=== PATIENT | male | born 1940 | race Caucasian/White ===

== ENCOUNTER 2016-09-20 06:10 | Emergency (ER) | payer MEDICARE, OTHER ==
[2016-09-20] MEDS ORDERED: ROCEPHIN 1 Gm-D5w 50 ml Bag** 50 ML IV ONE ×2 (06:13→06:29)
[2016-09-20] MEDS ORDERED: Xopenex 1.25 MG/0.5 ML UD NEBULE IH ONE ×2 (06:13→06:23)
[2016-09-20] MEDS ORDERED: Zithromax 500 MG/ 250 ML NaCl Premix 250 ML IV ONE ×2 (06:13→06:55)
[2016-09-20] MEDS ORDERED: Sodium Chloride 0.9% 1000 ML 1,000 ML IV SCH (06:15)
[2016-09-20] MEDS ORDERED: Nitrostat 0.4 MG (ED) SL ONE ×2 (06:20→06:29)
--- NOTE | 2016-09-20 06:20 | ERPHSYRPT ---
- History of Present Illness Time Seen by Provider: 09/20/16 06:10 Source: patient Exam Limitations: no limitations Physician History: FOR THE PAST 10 HOURS PT HAS HAD SHORTNESS OF AIR AND CHEST HEAVINESS; DENIES DIAPHORESIS, NAUSEA, VOMITING, ABDOMINAL PAIN, FEVER; ADMITS TO CHRONIC COUGH FOR YEARS(COPD). PT HAS HAD AN ME IN 2000 AND [address]. ACCOUNT AUDITOR IS DR ROBERTS. Allergies/Adverse Reactions: amiodarone [From Pacerone] Allergy (Severe, Verified 09/20/16 06:40) Home Medications: Aspirin 325 mg PO DAILY 06/23/16 [History] Atorvastatin Calcium [Lipitor 20MG Tablet] 20 mg PO DAILY 06/23/16 [History] Clopidogrel Bisulfate 75 mg [PLAVIX 75 MG Tablet] 75 mg PO DAILY 06/23/16 [History] Isosorbide Mononitrate 30 mg [Imdur 30 MG] 30 mg PO BID 06/23/16 [History] Labetalol HCl [Trandate] 300 mg PO BID 06/23/16 [History] Lisinopril 10 mg [Zestril 10 MG] 10 mg PO DAILY 06/23/16 [History] Metformin HCl 500 mg [Glucophage 500 MG] 500 mg PO DAILY 06/23/16 [History ] Omeprazole 20 MG [Prilosec 20 mg] 20 mg PO BID 06/23/16 [History] Spironolactone 25 mg [Aldactone 25 MG] 25 mg PO DAILY 06/23/16 [History] Hx Tetanus, Diphtheria Vaccination/Date Given: No Hx Influenza Vaccination/Date Given: Yes Hx Pneumococcal Vaccination/Date Given: Yes - Review of Systems Respiratory: Cough, Dyspnea Cardiac: Other (CHEST HEAVINESS) All Other Systems: Reviewed and Negative - Past Medical History Pertinent Past Medical History: Yes Cardiac History: Hypertension, Myocardial Infarction ([place]) Respiratory History: COPD Endocrine Medical History: Diabetes Type II - Past Surgical History Past Surgical History: Yes Cardiac: Cardiac Catheterization, Cardiac Stent Musculoskeletal: Orthopedic Surgery - Social History Smoking Status: Current every day smoker How long have you smoked: YRS Exposure to second hand smoke: Yes Drug Use: none Patient Lives Alone: No - Nursing Vital Signs Nursing Vital Signs: Initial Vital Signs Temperature 97.7 F Temperature Source Oral Pulse Rate 88 Respiratory Rate 21 Blood Pressure [] 93/60 Pain Intensity 0 - Physical Exam General Appearance: alert Eye Exam: PERRL/EOMI Ears, Nose, Throat Exam: hearing grossly normal, normal pharynx Neck Exam: normal inspection Respiratory Exam: airway intact, diminished breath sounds, prolonged expirations , rhonchi, wheezing Cardiovascular/Chest Exam: normal heart sounds Abdominal/Gastrointestinal Exam: soft, normal bowel sounds Extremity Exam: normal inspection, No pedal edema Peripheral Pulses Exam: dorsalis-pedis (R): 2+, dorsalis-pedis (L): 2+ Neurologic Exam: alert, cooperative Skin Exam: warm, dry SpO2 Interpretation: normal SpO2: 95 Oxygen Delivery: Room Air - Course Nursing assessment & vital signs reviewed: Yes EKG Interpreted by Me: RATE (89), Sinus Rhythm, Left [place] Deviation, NORMAL INTERVALS - Radiology Exams Chest X-ray Interpretation: Interpreted by me, No Pneumonia Ordered Tests: Active Orders 24 hr Category Date Time Status Portfolio Strategist STAT Care 09/20/16 06:13 Active EKG-ER Only STAT Care 09/20/16 06:13 Active IV Insertion STAT Care 09/20/16 06:13 Active Oxygen-ED Only NASAL CANNULA 2 lpm Care 09/20/16 06:13 Active Pulse Oximetry (ED) STAT Care 09/20/16 06:13 Active CHEST 1 VIEW (PORTABLE) Stat Exams 09/20/16 06:14 Taken ARTERIAL BLOOD GASES Urgent Lab 09/20/16 06:25 Completed BLOOD CULTURE Stat Lab 09/20/16 06:32 Received CBC W DIFF Stat Lab 09/20/16 06:25 Completed CMP Stat Lab 09/20/16 06:25 Completed CULTURE,SPUTUM Stat Lab 09/20/16 06:14 Uncollected MAGNESIUM Stat Lab 09/20/16 06:25 Completed NT PRO BNP Stat Lab 09/20/16 06:25 Completed PROTIME WITH INR Stat Lab 09/20/16 06:25 Received PTT Stat Lab 09/20/16 06:25 Received TROPONIN Stat Lab 09/20/16 06:25 Completed Respiratory Nebulizer STAT RT 09/20/16 06:36 Completed Medication Summary Generic Name Dose Route Start Last Admin Trade Name Freq PRN Reason Stop Dose Admin Azithromycin 250 mls @ 125 mls/hr 09/20/16 06:13 09/20/16 06:56 Zithromax 500 Mg/ 250 Ml Nacl Premix IV 09/20/16 08:12 125 mls/hr STAT ONE Administration Sodium Chloride 1,000 mls @ 300 mls/hr 09/20/16 06:15 09/20/16 06:39 Sodium Chloride 0.9% 1000 Ml IV 10/20/16 06:14 300 mls/hr .[id number] HARLEEN Administration Discontinued Medications Generic Name Dose Route Start Last Admin Trade Name Merlene PRN Reason Stop Dose Admin Aspirin 324 mg 09/20/16 06:21 09/20/16 06:40 Baby Aspirin 81 Mg Chew PO 09/20/16 06:22 324 mg STAT ONE Administration Aspirin Confirm 09/20/16 06:29 Baby Aspirin 81 Mg Chew Administered 09/20/16 06:30 Dose 324 mg .ROUTE .STK-MED ONE Ceftriaxone Sodium/Dextrose 50 mls @ 100 mls/hr 09/20/16 06:13 09/20/16 06:39 Rocephin 1 Gm-D5w 50 Ml Bag IV 09/20/16 06:42 100 mls/hr STAT ONE Administration Sodium Chloride Confirm 09/20/16 06:29 Sodium Chloride 0.9% 1000 Ml Administered 09/20/16 06:30 Dose 1,000 mls @ ud .ROUTE .STK-MED ONE Ceftriaxone Sodium/Dextrose Confirm 09/20/16 06:29 Rocephin 1 Gm-D5w 50 Ml Bag Administered 09/20/16 06:30 Dose 50 mls @ ud IV .STK-MED ONE Azithromycin Confirm 09/20/16 06:55 Zithromax 500 Mg/ 250 Ml Nacl Premix Administered 09/20/16 06:56 Dose 250 mls @ ud IV .STK-MED ONE Levalbuterol HCl 1.25 mg 09/20/16 06:13 09/20/16 06:26 Xopenex 1.25 Mg/0.5 Ml Ud Nebule IH 09/20/16 06:14 1.25 mg STAT ONE Administration Levalbuterol HCl Confirm 09/20/16 06:23 Xopenex 1.25 Mg/0.5 Ml Ud Nebule Administered 09/20/16 06:24 Dose 1.25 mg IH .STK-MED ONE Nitroglycerin 0.4 mg 09/20/16 06:20 09/20/16 06:40 Nitrostat 0.4 Mg (Ed) SL 09/20/16 06:21 0.4 mg STAT ONE Administration Nitroglycerin Confirm 09/20/16 06:29 Nitrostat 0.4 Mg (Ed) Administered 09/20/16 06:30 Dose 0.4 mg SL .STK-MED ONE Sodium Chloride Confirm 09/20/16 06:23 Sodium Chloride 3 Ml Ud Nebules Administered 09/20/16 06:24 Dose 3 ml IH .STK-MED ONE Lab/Rad Data: Laboratory Result Diagrams 09/20/16 06:25 09/20/16 06:25 Laboratory Results 09/20/16 09/20/16 09/20/16 Range/Units 06:25 06:25 06:25 WBC 8.7 (4.0-10.5) K/mm3 RBC 4.08 L (4.1-5.6) M/mm3 Hgb 12.4 L (12.5-18.0) gm/dl Hct 39.8 L (42-50) % MCV 97.5 (78-100) fl MCH 30.3 (26-32) pg MCHC 31.2 L (32-36) g/dl RDW 13.7 (11.5-14.0) % Plt Count 252 (150-450) K/mm3 MPV 9.7 H (6-9.5) fl Gran % 76.6 H (36.0-66.0) % Lymphocytes % 8.8 L (24.0-44.0) % Monocytes % 11.0 (0.0-12.0) % Eosinophils % 3.4 (0.00-5.0) % Basophils % 0.2 (0.0-0.4) % Basophils # 0.02 (0-0.4) Puncture Site RIGHT BRACHIAL pCO2 42 (35-45) mmHg pO2 71 L (75-100) mmHg Base Excess -1.1 (-2.0-2.0) O2 Saturation 92.4 L (94-100) g/dF ABG pH 7.37 (7.35-7.45) ABG HCO3 24.3 (22-28) ABG O2 Sat (Measured) 96.6 (95-100) % Michel Test NOT APPLICABLE A-a Gradient 26 a/A Ratio 0.73 Hemoglobin 12.8 Carboxyhemoglobin 3.2 (0.0-6.9) % THgb Methemoglobin 1.1 L (1.4-1.5) % Potassium 4.1 4.3 (3.5-5.1) Temperature 37.0 C POC O2 Flow Rate 21 % Sodium 140 (136-145) mEq/L Chloride 105 (98-107) mEq/L Carbon Dioxide 23.8 (21-32) mEq/L Anion Gap 15.5 H (5-15) MEQ/L BUN 14 (9-20) mg/dL Creatinine 0.92 (0.55-1.30) mg/dl Estimated GFR > 60 ML/MIN Glucose 151 H (70-110) MG/DL Calcium 8.7 (8.5-10.1) mg/dL Magnesium 2.0 (1.8-2.4) mg/dL Total Bilirubin 0.3 (0.2-1.0) mg/dL AST 18 (15-37) U/L ALT 18 (12-78) U/L Alkaline Phosphatase 83 (46-116) U/L Troponin I < 0.017 (0.000-0.056) ng/ml NT-Pro-B Natriuret Pep 166 H (0-125) pg/ml Serum Total Protein 6.9 (6.4-8.2) gm/dL Albumin 3.7 (3.4-5.0) g/dL - Progress Discussed with DrSuhas: Davina Salvador (ACCEPTING PT FOR TRANSFER TO [facility] [place] A DIRECT ADMISSION([id number]) ) - Departure Time of Disposition: 07:32 Departure Disposition: Transfer ([facility] [place]) Clinical Impression: COPD-ACUTE EXACERBATION, CHEST HEAVINESS, HTN, DM Condition: Stable Critical Care Time: No Referrals: BLANCA LI MD [Primary Care Provider] - Instructions: Shortness of Breath, Chronic Obstructive Pulmonary Disease
[2016-09-20] MEDS ORDERED: BABY ASPIRIN 81 MG CHEW PO ONE (06:21)
[2016-09-20] MEDS ORDERED: Sodium Chloride 3 ML UD NEBULES IH ONE (06:23)
[2016-09-20] MEDS ORDERED: BABY ASPIRIN 81 MG CHEW ONE (06:29)
[2016-09-20] MEDS ORDERED: Sodium Chloride 0.9% 1000 ML 1,000 ML ONE (06:29)
[2016-09-20 06:32] LABS: A-aADO2 26; ARTERIAL BLD GAS O2 SATURATION 96.6 % (95-100); ARTERIAL BLOOD GAS BASE EXCESS -1.1 (-2.0-2.0); ARTERIAL BLOOD GAS FIO2 21 %; ARTERIAL BLOOD GAS PO2 71 mmHg (75-100); ARTERIAL BLOOD GAS pH 7.37 (7.35-7.45)
[2016-09-20 06:36] LABS: BASOPHIL % 0.2 % (0.0-0.4); Eosinophil % 3.4 % (0.00-5.0); Granulocytes % 76.6 % (36.0-66.0); Lymphocytes % 8.8 % (24.0-44.0); Mean Cell Volume 97.5 fl (78-100); Mean Platelet Volume 9.7 fl (6-9.5); Platelet Count 252 K/mm3 (150-450); Red Blood Count 4.08 M/mm3 (4.1-5.6); Red Cell Distribution Width 13.7 % (11.5-14.0); White Blood Count 8.7 K/mm3 (4.0-10.5)
[2016-09-20 06:47] LABS: Mean Corpuscular Hemoglobin 30.3 pg (26-32)
[2016-09-20 07:23] LABS: ALBUMIN 3.7 g/dL (3.4-5.0); ALKALINE PHOSPHATASE 83 U/L (46-116); ANION GAP 15.5 MEQ/L (5-15); BILIRUBIN,TOTAL 0.3 mg/dL (0.2-1.0); BLOOD UREA NITROGEN 14 mg/dL (9-20); CHLORIDE 105 mEq/L (98-107); Carbon Dioxide 23.8 mEq/L (21-32); Glucose 151 MG/DL (70-110); Potassium 4.3 mEq/L (3.5-5.1); SGOT/AST 18 U/L (15-37); SGPT/ALT 18 U/L (12-78); SODIUM 140 mEq/L (136-145); TROPONIN < 0.017 ng/ml (0.000-0.056); Total Protein 6.9 gm/dL (6.4-8.2)
[2016-09-20] MEDS ORDERED: solu-MEDROL 125 MG IV ONE (07:33)
[2016-09-20 07:36] LABS: INR 1.08 (0.8-3.0); PROTIME 12.1 SECONDS (8.83-12.87)
[2016-09-20 07:38] LABS: PTT 30.6 SECONDS (24.1-36.1)
[2016-09-20] MEDS ORDERED: solu-MEDROL 125 MG ONE (07:45)
[2016-09-20 07:56] VITALS: O2SAT 97
--- NOTE | 2016-09-20 08:59 | XRAY ---
Indication: Short of breath. Comparison: June 23, 2016. AP chest again hyperinflated and clear. Heart is nonenlarged. New moderate size hiatal hernia. Bony thorax intact again with mild osteopenia and degenerative changes. Impression: Stable COPD. New hiatal hernia. Nothing acute.
[2016-09-20 09:47] VITALS: BP 153/76; PULSE 82
== END 2016-09-20 09:48 | disposition short-term general hospital (02) ==
LOC: ED 06:10
DX: J44.1 Chronic obstructive pulmonary disease with (acute) exacerbation (principal); R07.89 Other chest pain; I10 Essential (primary) hypertension; E11.9 Type 2 diabetes mellitus without complications; Z79.82 Long term (current) use of aspirin; Z79.84 Long term (current) use of oral hypoglycemic drugs; I25.2 Old myocardial infarction; Z98.61 Coronary angioplasty status; R05 Cough; Z79.01 Long term (current) use of anticoagulants
CPT/HCPCS: 36000; 36415; 36600; 71010; 80053; 82375; 82803; 83735; 83880; 84484; 85025; 85610; 85730; 87040; 93005; 93041; 94640; 96360; 96361; 96365; 96367; 96374; 99284; J0456; J0696; J2930

== ENCOUNTER 2022-04-27 19:09 | Observation (INO) | payer MEDICARE, OTHER ==
[2022-04-27] MEDS ORDERED: solu-MEDROL 125 MG, Sterile H2O 10 ml 2 ML IV ONE ×2 (19:23)
[2022-04-27] MEDS ORDERED: DUONEB 0.5-3 MG/3 ml Neb IH ONE ×2 (19:23→19:44)
--- NOTE | 2022-04-27 19:27 | ERPHSYRPT ---
- History of Present Illness Time Seen by Provider: 04/27/22 19:26 Source: patient Exam Limitations: no limitations Physician History: Patient is a 81-year-old male presents to emergency department for evaluation of shortness of breath. Patient has a history of COPD. Patient is a smoker. Symptoms started approximately 1 week ago and has been progressively worse. No associated chest pain. No nausea vomiting or diaphoresis. Symptoms are moderate in intensity. Symptoms are worse with exertion. Symptoms improved with rest. Patient voices no other complaints or concerns at this time. Portions of this note were created with voice recognition technology. There may be grammatical, spelling, punctuation or sound alike errors Timing/Duration: week(s) Severity of Dyspnea-Max: moderate Severity of Dyspnea-Current: mild Possible Cause: frequent episodes Modifying Factors: Improves With: activity Associated Symptoms: cough, No chest pain/discomfort, No ankle swelling, No calf pain, No heart racing, No muscle spasms feet, No painful breathing Allergies/Adverse Reactions: amiodarone [From Pacerone] Allergy (Severe, Verified 04/27/22 19:28) Home Medications: Aspirin 325 mg PO DAILY 06/23/16 [History] Atorvastatin Calcium [Lipitor 20MG Tablet] 20 mg PO DAILY 06/23/16 [History] Clopidogrel Bisulfate [PLAVIX 75 MG Tablet] 75 mg PO DAILY 06/23/16 [History] Isosorbide Mononitrate 30 mg [Imdur 30 MG] 30 mg PO BID 06/23/16 [History] Labetalol HCl [Trandate] 300 mg PO BID 06/23/16 [History] Lisinopril 10 mg [Zestril 10 MG] 10 mg PO DAILY 06/23/16 [History] Metformin HCl 500 mg [Glucophage 500 MG] 500 mg PO DAILY 06/23/16 [Histor y] Omeprazole 20 MG [Prilosec 20 mg] 20 mg PO BID 06/23/16 [History] Spironolactone 25 mg [Aldactone 25 MG] 25 mg PO DAILY 06/23/16 [History] Hx Tetanus, Diphtheria Vaccination/Date Given: No Hx Influenza Vaccination/Date Given: Yes Hx Pneumococcal Vaccination/Date Given: Yes - Review of Systems Constitutional: No Symptoms, No Fever, No Chills Eyes: No Symptoms Ears, Nose, & Throat: No Symptoms Respiratory: No Symptoms, No Cough, No Dyspnea Cardiac: No Symptoms, No Chest Pain, No Edema, No Syncope Abdominal/Gastrointestinal: No Symptoms, No Abdominal Pain, No Nausea, No Vomiting, No Diarrhea Genitourinary Symptoms: No Symptoms, No Dysuria Musculoskeletal: No Symptoms, No Back Pain, No Neck Pain Skin: No Symptoms, No Rash Neurological: No Symptoms, No Dizziness, No Focal Weakness, No Sensory Changes Psychological: No Symptoms Endocrine: No Symptoms Hematologic/Lymphatic: No Symptoms Immunological/Allergic: No Symptoms All Other Systems: Reviewed and Negative - Past Medical History Pertinent Past Medical History: Yes Cardiac History: Hypertension, Myocardial Infarction ([place]) Respiratory History: COPD Endocrine Medical History: Diabetes Type II - Past Surgical History Past Surgical History: Yes Cardiac: Cardiac Catheterization, Cardiac Stent Musculoskeletal: Orthopedic Surgery Other Surgical History: rt eye removed - Social History Smoking Status: Current every day smoker How long have you smoked: YRS Exposure to second hand smoke: Yes Drug Use: none Patient Lives Alone: No - Nursing Vital Signs Nursing Vital Signs: Initial Vital Signs Temperature 97.8 F 04/27/22 19:09 Pulse Rate 85 04/27/22 19:09 Respiratory Rate 18 04/27/22 19:09 Blood Pressure 170/97 04/27/22 19:09 O2 Sat by Pulse Oximetry 96 04/27/22 19:09 Pain Scale Pain Intensity 0 - Physical Exam General Appearance: no apparent distress, alert Eye Exam: PERRL/EOMI Ears, Nose, Throat Exam: hearing grossly normal, normal ENT inspection, normal pharynx Neck Exam: normal inspection, supple, full range of motion Respiratory Exam: normal breath sounds, chest tenderness, diminished breath sounds, rhonchi, wheezing Cardiovascular/Chest Exam: normal heart sounds, regular rate/rhythm Abdominal/Gastrointestinal Exam: soft, No tenderness, No distention, No mass Extremity Exam: non-tender, normal range of motion, normal inspection, no calf tenderness, no pedal edema Neurologic Exam: alert, oriented x 3, cooperative, non ferrous material handler II-XII nml as tested, sensation nml, No motor deficits Skin Exam: normal color, warm, No dry SpO2 Interpretation: normal SpO2: 96 O2 Delivery: Room Air - Course Nursing assessment & vital signs reviewed: Yes EKG Interpreted by Me: RATE (80), Sinus Rhythm, NORMAL AXIS, NORMAL INTERVALS - Radiology Exams Chest X-ray Interpretation: Interpreted by me (Hyperinflated lungs. Normal cardiac silhouette. Intact bony thorax. Osteopenia. Degenerative changes.) Ordered Tests: Active Orders 24 hr Category Date Time Status Gray Tender STAT Care 04/27/22 19:23 Active EKG-ER Only STAT Care 04/27/22 19:23 Active IV Insertion STAT Care 04/27/22 19:23 Active Pulse Oximetry (ED) STAT Care 04/27/22 19:23 Active CHEST 1 VIEW (PORTABLE) Stat Exams 04/27/22 19:23 Taken BLOOD CULTURE Stat Lab 04/27/22 19:45 Received CBC W DIFF Stat Lab 04/27/22 19:45 Completed CMP Stat Lab 04/27/22 19:23 Completed NT PRO BNP Stat Lab 04/27/22 19:23 Completed TROPONIN Q4H Lab 04/27/22 19:46 Completed TROPONIN Q4H Lab 04/27/22 23:30 Ordered TROPONIN Q4H Lab 04/28/22 03:30 Ordered Respiratory Therapy Assessment DAILY RT 04/27/22 19:49 Active Transfer Order Routine Transfer 04/27/22 Ordered Medication Summary Generic Name Dose Route Start Last Admin Trade Name Freq PRN Reason Stop Dose Admin Azithromycin 500 mg in 250 mls @ 250 mls/hr 04/27/22 22:05 Zithromax 500 Mg/ 250 Ml Nacl Premix IV 04/27/22 23:04 STAT STA Ceftriaxone Sodium/Dextrose 2 g in 50 mls @ 100 mls/hr 04/27/22 22:05 04/27/22 22:08 Rocephin 2 Gm-D5w 50ml Bag IV 04/27/22 22:34 100 mls/hr STAT STA 100 mls/hr Administration Discontinued Medications Generic Name Dose Route Start Last Admin Trade Name Freq PRN Reason Stop Dose Admin Albuterol/Ipratropium 3 ml 04/27/22 19:23 04/27/22 19:45 Ipratropium/Albuterol Sulfate 3 Ml Ampul.Neb IH 04/27/22 19:24 3 ml STAT ONE Administration Albuterol/Ipratropium Confirm 04/27/22 19:44 Ipratropium/Albuterol Sulfate 3 Ml Ampul.Neb Administered 04/27/22 19:45 Dose 3 ml IH .STK-MED ONE Methylprednisolone Sodium 0 mg 04/27/22 19:23 04/27/22 19:42 Succinate 125 mg/ Sterile IV 04/27/22 19:24 125 mg Water 2 ml STAT ONE Administration Ceftriaxone Sodium/Dextrose Confirm 04/27/22 22:07 Rocephin 2 Gm-D5w 50ml Bag Administered 04/27/22 22:08 Dose 2 g in 50 mls @ ud IV .STK-MED ONE Methylprednisolone Sodium Succinate Confirm 04/27/22 19:39 Methylprednis Sod Succ 125 Mg/2 Ml Vial Administered 04/27/22 19:40 Dose 125 mg .ROUTE .STK-MED ONE Sterile Water Confirm 04/27/22 19:39 Water For Injection,Sterile 10 Ml Vial Administered 04/27/22 19:40 Dose 10 ml IJ .STK-MED ONE Lab/Rad Data: Laboratory Result Diagrams 04/27/22 19:45 04/27/22 19:23 Laboratory Results 04/27/22 04/27/22 04/27/22 Range/Units Unknown 19:46 19:45 WBC 7.0 (4.0-10.5) x10^3/uL RBC 3.72 L (4.1-5.6) x10^6/uL Hgb 12.4 L (12.5-18.0) g/dL Hct 39.2 L (42-50) % MCV 105.4 H (78-100) fL MCH 33.3 H (26-32) pg MCHC 31.6 L (32-36) g/dL RDW 12.9 (11.5-14.0) % Plt Count 187 (150-450) x10^3/uL MPV 9.7 (7.5-11.0) fL Gran % 68.6 H (36.0-66.0) % Immature Gran % (Auto) 0.3 (0.00-0.4) % Nucleat RBC Rel Count 0.0 (0.00-0.1) % Eos # (Auto) 0.25 (0-0.5) x10^3/uL Immature Gran # (Auto) 0.02 (0.00-0.03) x10^3u/L Absolute Lymphs (auto) 1.07 (1.0-4.6) x10^3/uL Absolute Monos (auto) 0.84 (0.0-1.3) x10^3/uL Absolute Nucleated RBC 0.00 (0.00-0.01) x10^3u/L Lymphocytes % 15.2 L (24.0-44.0) % Monocytes % 11.9 (0.0-12.0) % Eosinophils % 3.6 (0.00-5.0) % Basophils % 0.4 (0.0-0.4) % Absolute Granulocytes 4.83 (1.4-6.9) x10^3/uL Basophils # 0.03 (0-0.4) x10^3/uL Sodium (137-145) mmol/L Potassium (3.5-5.1) mmol/L Chloride (98-107) mmol/L Carbon Dioxide (22-30) mmol/L Anion Gap (5-15) MEQ/L BUN (9-20) mg/dL Creatinine (0.66-1.25) mg/dL Estimated GFR ML/MIN Glucose (74-106) mg/dL Calcium (8.4-10.2) mg/dL Total Bilirubin (0.2-1.3) mg/dL AST (17-59) U/L ALT (0-50) U/L Alkaline Phosphatase (38-126) U/L Troponin I < 0.012 (0.000-0.034) ng/mL NT-Pro-B Natriuret Pep (0-1800) pg/mL Serum Total Protein (6.3-8.2) g/dL Albumin (3.5-5.0) g/dL Influenza Type A Ag NEGATIVE (NEGATIVE) Influenza Type B Ag NEGATIVE (NEGATIVE) RSV (PCR) NEGATIVE (Negative) SARS-CoV-2 (PCR) NEGATIVE (NEGATIVE) 04/27/22 Range/Units 19:23 WBC (4.0-10.5) x10^3/uL RBC (4.1-5.6) x10^6/uL Hgb (12.5-18.0) g/dL Hct (42-50) % MCV (78-100) fL MCH (26-32) pg MCHC (32-36) g/dL RDW (11.5-14.0) % Plt Count (150-450) x10^3/uL MPV (7.5-11.0) fL Gran % (36.0-66.0) % Immature Gran % (Auto) (0.00-0.4) % Nucleat RBC Rel Count (0.00-0.1) % Eos # (Auto) (0-0.5) x10^3/uL Immature Gran # (Auto) (0.00-0.03) x10^3u/L Absolute Lymphs (auto) (1.0-4.6) x10^3/uL Absolute Monos (auto) (0.0-1.3) x10^3/uL Absolute Nucleated RBC (0.00-0.01) x10^3u/L Lymphocytes % (24.0-44.0) % Monocytes % (0.0-12.0) % Eosinophils % (0.00-5.0) % Basophils % (0.0-0.4) % Absolute Granulocytes (1.4-6.9) x10^3/uL Basophils # (0-0.4) x10^3/uL Sodium 137 (137-145) mmol/L Potassium 4.4 (3.5-5.1) mmol/L Chloride 105 (98-107) mmol/L Carbon Dioxide 23 (22-30) mmol/L Anion Gap 13.0 (5-15) MEQ/L BUN 20 (9-20) mg/dL Creatinine 0.91 (0.66-1.25) mg/dL Estimated GFR > 60.0 ML/MIN Glucose 113 H (74-106) mg/dL Calcium 8.7 (8.4-10.2) mg/dL Total Bilirubin 0.30 (0.2-1.3) mg/dL AST 22 (17-59) U/L ALT 17 (0-50) U/L Alkaline Phosphatase 62 (38-126) U/L Troponin I (0.000-0.034) ng/mL NT-Pro-B Natriuret Pep 168 (0-1800) pg/mL Serum Total Protein 6.2 L (6.3-8.2) g/dL Albumin 3.8 (3.5-5.0) g/dL Influenza Type A Ag (NEGATIVE) Influenza Type B Ag (NEGATIVE) RSV (PCR) (Negative) SARS-CoV-2 (PCR) (NEGATIVE) - Progress Progress: improved Air Movement: fair Progress Note: Patient reassessed. He feels somewhat better. X-ray reveals hyperinflated lungs. Patient has diminished coarse breath sounds with faint wheezing. Patient is a current smoker. History of COPD. We will admit for further evaluation and treatment of COPD exacerbation. Blood cultures obtained. Antibiotics administered. 04/27/22 22:17 Case discussed with who accepts admission to observation. Plan of care discussed with patient. He agrees to admission at [facility] for further evaluation and treatment. Admit orders completed. COVID test negative. 04/27/22 22:18 Blood Culture(s) Obtained: Yes Antibiotics given: Yes Discussed with Dr.: Dada Will see patient in: hospital (observation) Counseled pt/family regarding: lab results, diagnosis, rad results - Departure Departure Disposition: Observation Clinical Impression: COPD exacerbation, Macrocytic anemia Condition: Stable Critical Care Time: No Referrals: BLANCA LI MD [Primary Care Provider] - Follow up/PCP as directed Instructions: Chronic Obstructive Pulmonary Disease
[2022-04-27] MEDS ORDERED: Sterile H2O 10 ml IJ ONE (19:39)
[2022-04-27] MEDS ORDERED: solu-MEDROL ONE (19:39)
[2022-04-27 19:48] LABS: Absolute Neutrophil Ct (ANC) 4.83 x10^3/uL (1.4-6.9); Basophil (Absolute #) 0.03 x10^3/uL (0-0.4); Eosinophil % 3.6 % (0.00-5.0); Eosinophil (Absolute #) 0.25 x10^3/uL (0-0.5); Hematocrit 39.2 % (42-50); Hemoglobin 12.4 g/dL (12.5-18.0); Lymphocyte (Absolute #) 1.07 x10^3/uL (1.0-4.6); Lymphocytes % 15.2 % (24.0-44.0); Mean Cell Volume 105.4 fL (78-100); Mean Corpuscular Hemoglobin 33.3 pg (26-32); Mean Corpuscular Hgb Concent. 31.6 g/dL (32-36); Mean Platelet Volume 9.7 fL (7.5-11.0); Monocyte (Absolute #) 0.84 x10^3/uL (0.0-1.3); Monocytes % 11.9 % (0.0-12.0); Neutrophil % 68.6 % (36.0-66.0); Platelet Count 187 x10^3/uL (150-450); Red Blood Count 3.72 x10^6/uL (4.1-5.6); Red Cell Distribution Width 12.9 % (11.5-14.0)
[2022-04-27 20:13] LABS: ALBUMIN 3.8 g/dL (3.5-5.0); ALKALINE PHOSPHATASE 62 U/L (38-126); BLOOD UREA NITROGEN 20 mg/dL (9-20); CHLORIDE 105 mmol/L (98-107); Calcium 8.7 mg/dL (8.4-10.2); Carbon Dioxide 23 mmol/L (22-30); Creatinine 1 0.91 mg/dL (0.66-1.25); EST GLOMERULAR FILTRATION RATE > 60.0 ML/MIN; Glucose 113 mg/dL (74-106); NT PRO BNP 168 pg/mL (0-1800); Potassium 4.4 mmol/L (3.5-5.1); SGOT/AST 22 U/L (17-59); SGPT/ALT 17 U/L (0-50); SODIUM 137 mmol/L (137-145); Total Protein 6.2 g/dL (6.3-8.2)
[2022-04-27 20:24] LABS: INFLUENZA A NEGATIVE (NEGATIVE); INFLUENZA B NEGATIVE (NEGATIVE); RESPIRATORY SYNCTIAL VIRUS NEGATIVE (Negative); SARS-CoV-2 Xpert Express NEGATIVE (NEGATIVE)
[2022-04-27] MEDS ORDERED: ROCEPHIN 2 Gm-D5w 50ML BAG** 2 G/50 ML IVPB IV STA (22:05)
[2022-04-27] MEDS ORDERED: Zithromax 500 MG/ 250 ML NaCl Premix 500 MG/250 ML IVPB IV STA (22:05)
[2022-04-27] MEDS ORDERED: ROCEPHIN 2 Gm-D5w 50ML BAG** 2 G/50 ML IVPB IV ONE (22:07)
[2022-04-27] MEDS ORDERED: Nitrostat 0.4 MG (ED) SL ONE (22:17)
[2022-04-27] MEDS ORDERED: DUONEB 0.5-3 MG/3 ml Neb IH SCH (23:00)
[2022-04-28] MEDS ORDERED: solu-MEDROL ONE (00:05)
[2022-04-28] MEDS ORDERED: Sterile H2O 10 ml IJ ONE (00:06)
[2022-04-28] MEDS: solu-MEDROL 60 MG, Sterile H2O 10 ml 2 ML IV SCH ×6 (00:10→11:54)
[2022-04-28 05:13] LABS: Hematocrit 41.1 % (42-50); Hemoglobin 12.9 g/dL (12.5-18.0); Mean Cell Volume 105.9 fL (78-100); Mean Corpuscular Hemoglobin 33.2 pg (26-32); Mean Corpuscular Hgb Concent. 31.4 g/dL (32-36); Mean Platelet Volume 9.8 fL (7.5-11.0); Platelet Count 191 x10^3/uL (150-450); Red Blood Count 3.88 x10^6/uL (4.1-5.6); Red Cell Distribution Width 12.9 % (11.5-14.0); White Blood Count 3.2 x10^3/uL (4.0-10.5)
[2022-04-28 05:33] LABS: ALBUMIN 3.9 g/dL (3.5-5.0); ALKALINE PHOSPHATASE 62 U/L (38-126); ANION GAP 11.6 MEQ/L (5-15); BLOOD UREA NITROGEN 20 mg/dL (9-20); CHLORIDE 102 mmol/L (98-107); Calcium 8.8 mg/dL (8.4-10.2); Carbon Dioxide 27 mmol/L (22-30); Creatinine 1 0.82 mg/dL (0.66-1.25); EST GLOMERULAR FILTRATION RATE > 60.0 ML/MIN; Glucose 155 mg/dL (74-106); Potassium 4.5 mmol/L (3.5-5.1); SGOT/AST 25 U/L (17-59); SGPT/ALT 19 U/L (0-50); SODIUM 137 mmol/L (137-145); Total Protein 6.3 g/dL (6.3-8.2)
[2022-04-28] MEDS: DUONEB 0.5-3 MG/3 ml Neb IH SCH ×2 (07:30→11:00)
--- NOTE | 2022-04-28 08:42 | XRAY ---
Indication: Cough and short of breath. Comparison: September 20, 2006 Portable chest unchanged again demonstrating COPD, coronary stent graft, and hiatal hernia with partial intrathoracic stomach. Remaining heart and lungs unremarkable. Bony thorax intact with osteopenia, degenerative changes, and old left lower rib fractures. Impression: Continued nonacute chest with chronic features.
[2022-04-28] MEDS ORDERED: Zithromax 500 MG/ 250 ML NaCl Premix 500 MG/250 ML IVPB IV SCH ×2 (10:00→22:00)
[2022-04-28] MEDS ORDERED: NON-FORMULARY ITEM (Atorvastatin Calcium 20 MG Tab) PO SCH (10:00)
[2022-04-28] MEDS ORDERED: Protonix 40MG Tablet PO SCH (10:00)
[2022-04-28] MEDS ORDERED: Trandate 100 MG PO SCH (10:00)
[2022-04-28] MEDS ORDERED: Aldactone 25 MG PO SCH (10:00)
[2022-04-28] MEDS ORDERED: Imdur 30 MG PO SCH (10:00)
[2022-04-28] MEDS ORDERED: NON-FORMULARY ITEM (Omeprazole 20 Mg [Prilosec 20 Mg] 20 MG Capsule.Dr) PO SCH (10:00)
[2022-04-28] MEDS ORDERED: Ecotrin 325 MG PO SCH (10:00)
[2022-04-28] MEDS ORDERED: ZOCOR 20MG PO SCH ×2 (10:00→22:00)
[2022-04-28] MEDS ORDERED: Glucophage 500 MG PO SCH (10:00)
[2022-04-28] MEDS ORDERED: PLAVIX Tablet PO SCH (10:00)
[2022-04-28] MEDS ORDERED: Zestril 10 MG PO SCH ×2 (10:00→22:00)
[2022-04-28 12:10] VITALS: BP 124/60; PULSE 77; O2SAT 97
--- NOTE | 2022-04-28 20:42 | PCM.SSS ---
History of Present Illness - Chief Complaint Chief Complaint: shortness of breath for 2 days History of Present Illness: is a 81 year old male.presents to emergency department for evaluation of shortness of breath. Patient has a history of COPD. Patient is a smoker. Symptoms started approximately 1 week ago and has been progressively worse. No associated chest pain. No nausea vomiting or diaphoresis. Symptoms are moderate in intensity. Symptoms are worse with exertion. Symptoms improved with rest. Patient voices no other complaints or concerns at this time. - Review of Systems Constitutional: No Fever, No Chills Eyes: No Symptoms Ears, Nose, & Throat: No Symptoms Respiratory: Cough, Short Of Breath, Wheezing Cardiac: Chest Pain, No Edema, No Syncope Abdominal/Gastrointestinal: No Abdominal Pain, No Nausea, No Vomiting, No Diarrhea Genitourinary Symptoms: No Dysuria Musculoskeletal: No Back Pain, No Neck Pain Skin: No Rash Neurological: No Dizziness, No Focal Weakness, No Sensory Changes Psychological: No Symptoms Endocrine: No Symptoms Hematologic/Lymphatic: No Symptoms Immunological/Allergic: No Symptoms Medications & Allergies Home Medications: Home Medication List Aspirin 325 mg PO DAILY 06/23/16 [History Confirmed 04/27/22] Atorvastatin Calcium [Lipitor 20MG Tablet] 20 mg PO HS 06/23/16 [History Confirmed 04/28/22] Clopidogrel Bisulfate [PLAVIX Tablet] 75 mg PO DAILY 06/23/16 [History Confirmed 04/27/22] Isosorbide Mononitrate 30 mg [Imdur 30 MG] 30 mg PO BID 06/23/16 [History Confirmed 04/27/22] Labetalol HCl [Trandate] 300 mg PO BID 06/23/16 [History Confirmed 04/27/22] Lisinopril 10 mg [Zestril 10 MG] 10 mg PO BID 06/23/16 [History Confirmed 04/28/22] Omeprazole 20 MG [Prilosec 20 mg] 20 mg PO DAILY 06/23/16 [History Confirmed 04/28/22] Spironolactone 25 mg [Aldactone 25 MG] 25 mg PO DAILY 06/23/16 [History Confirmed 04/27/22] Albuterol 2.5 mg/3 ml Neb [Proventil 2.5 mg/3 ml Neb] 2.5 inh IH Q4HPRN PRN 04/27/22 [History Confirmed 04/27/22] Pramipexole Di-HCl 0.5 mg [Mirapex 0.5 MG Tablet] 0.5 mg PO HS 04/28/22 [History Confirmed 04/28/22] Allergies/Adverse Reactions: Allergies Allergy/AdvReac Type Severity Reaction Status Date / Time amiodarone [From Pacerone] Allergy Severe Verified 04/27/22 19:28 - Past Medical History Past Medical History: Yes Cardiac History: Hypertension, Myocardial Infarction (MS) Respiratory History: COPD Endocrine Medical History: Diabetes Type II - Past Surgical History Past Surgical History: Yes Cardiac History: Cardiac Catheterization, Cardiac Stent Musculskeletal Surgical Hx: Orthopedic Surgery Other Surgical History: rt eye removed - Social History Smoking Status: Current every day smoker How long have you smoked: years Exposure to second hand smoke: No Alcohol: None Drug Use: none - Physical Exam Vital Signs: Vital Signs - 24 hr Temp Pulse Resp BP Pulse Ox 04/28/22 12:00 98.2 F 77 17 124/60 97 04/28/22 11:03 94 H 18 92 L 04/28/22 08:00 97.9 F 89 16 169/106 93 L 04/28/22 07:45 86 149/90 04/28/22 07:34 91 H 18 91 L 04/28/22 04:00 98.0 F 91 H 20 132/76 96 04/27/22 23:20 85 20 95 04/27/22 22:44 98.1 F 81 20 139/76 95 04/27/22 22:20 96 04/27/22 21:07 74 124/66 96 General Appearance: no apparent distress, alert Neurologic Exam: alert, oriented x 3, cooperative, normal mood/affect, nml cerebellar function, nml station & gait, sensation nml, No motor deficits Eye Exam: PERRL/EOMI, eyes nml inspection Ears, Nose, Throat Exam: normal ENT inspection, TMs normal, pharynx normal, moist mucous membranes Neck Exam: normal inspection, non-tender, supple, full range of motion Respiratory Exam: diminished breath sounds, crackles/rales, rhonchi, wheezing, No respiratory distress Cardiovascular Exam: regular rate/rhythm, normal heart sounds, normal peripheral pulses Gastrointestinal/Abdomen Exam: soft, normal bowel sounds, No tenderness, No mass Back Exam: normal inspection, normal range of motion, No CVA tenderness, No vertebral tenderness Extremity Exam: normal inspection, normal range of motion, pelvis stable Skin Exam: normal color, warm, dry, No rash Lymphatic Exam: No adenopathy Results - Labs Lab/Micro Results: Lab Results-Last 24 Hours 04/27/22 04/28/22 04/28/22 Range/Units 23:30 05:08 05:08 WBC 3.2 L (4.0-10.5) x10^3/uL RBC 3.88 L (4.1-5.6) x10^6/uL Hgb 12.9 (12.5-18.0) g/dL Hct 41.1 L (42-50) % MCV 105.9 H (78-100) fL MCH 33.2 H (26-32) pg MCHC 31.4 L (32-36) g/dL RDW 12.9 (11.5-14.0) % Plt Count 191 (150-450) x10^3/uL MPV 9.8 (7.5-11.0) fL Sodium (137-145) mmol/L Potassium (3.5-5.1) mmol/L Chloride (98-107) mmol/L Carbon Dioxide (22-30) mmol/L Anion Gap (5-15) MEQ/L BUN (9-20) mg/dL Creatinine (0.66-1.25) mg/dL Estimated GFR ML/MIN Glucose (74-106) mg/dL POC Glucometer (74 to 106) mg/dL Calcium (8.4-10.2) mg/dL Total Bilirubin (0.2-1.3) mg/dL AST (17-59) U/L ALT (0-50) U/L Alkaline Phosphatase (38-126) U/L Troponin I < 0.012 < 0.012 (0.000-0.034) ng/mL Serum Total Protein (6.3-8.2) g/dL Albumin (3.5-5.0) g/dL 04/28/22 04/28/22 Range/Units 05:08 06:51 WBC (4.0-10.5) x10^3/uL RBC (4.1-5.6) x10^6/uL Hgb (12.5-18.0) g/dL Hct (42-50) % MCV (78-100) fL MCH (26-32) pg MCHC (32-36) g/dL RDW (11.5-14.0) % Plt Count (150-450) x10^3/uL MPV (7.5-11.0) fL Sodium 137 (137-145) mmol/L Potassium 4.5 (3.5-5.1) mmol/L Chloride 102 (98-107) mmol/L Carbon Dioxide 27 (22-30) mmol/L Anion Gap 11.6 (5-15) MEQ/L BUN 20 (9-20) mg/dL Creatinine 0.82 (0.66-1.25) mg/dL Estimated GFR > 60.0 ML/MIN Glucose 155 H (74-106) mg/dL POC Glucometer 128 H (74 to 106) mg/dL Calcium 8.8 (8.4-10.2) mg/dL Total Bilirubin 0.30 (0.2-1.3) mg/dL AST 25 (17-59) U/L ALT 19 (0-50) U/L Alkaline Phosphatase 62 (38-126) U/L Troponin I (0.000-0.034) ng/mL Serum Total Protein 6.3 (6.3-8.2) g/dL Albumin 3.9 (3.5-5.0) g/dL - Radiology Impressions Radiology Exams & Impressions: Radiology Procedures Category Date Time Status CHEST 1 VIEW (PORTABLE) Stat Exams 04/27/22 19:23 Completed RAD/CHEST 1 VIEW (PORTABLE) Indication: Cough and short of breath. Comparison: September 20, 2006 Portable chest unchanged again demonstrating COPD, coronary stent graft, and hiatal hernia with partial intrathoracic stomach. Remaining heart and lungs unremarkable. Bony thorax intact with osteopenia, degenerative changes, and old left lower rib fractures. Impression: Continued nonacute chest with chronic features. Assessment/Plan (1) COPD exacerbation Status: Acute Assessment & Plan: Chief Complaint Diagnosis COPD exacerbation Allergies Allergy/AdvReac Type Severity Reaction Status Date / Time amiodarone [From Pacerone] Allergy Severe Verified 04/27/22 19:28 Vital Signs (Last 24 hours) Temp Pulse Resp BP Pulse Ox 04/28/22 12:00 98.2 F 77 17 124/60 97 04/28/22 11:03 94 H 18 92 L 04/28/22 08:00 97.9 F 89 16 169/106 93 L 04/28/22 07:45 86 149/90 04/28/22 07:34 91 H 18 91 L 04/28/22 04:00 98.0 F 91 H 20 132/76 96 04/27/22 23:20 85 20 95 04/27/22 22:44 98.1 F 81 20 139/76 95 04/27/22 22:20 96 04/27/22 21:07 74 124/66 96 Home Medications Medication Instructions Recorded Confirmed Last Taken Type Albuterol 2.5 mg/3 ml Neb 2.5 inh IH Q4HPRN PRN 04/27/22 04/27/22 Unknown History [Proventil 2.5 mg/3 ml Neb] Pramipexole Di-HCl 0.5 mg 0.5 mg PO HS 04/28/22 04/28/22 Unknown History [Mirapex 0.5 MG Tablet] Current Medications Discontinued Medications Generic Name Dose Route Start Last Admin Trade Name Freq PRN Reason Stop Dose Admin Albuterol/Ipratropium 3 ml 04/27/22 19:23 04/27/22 19:45 Ipratropium/Albuterol Sulfate 3 Ml Ampul.Neb IH 04/27/22 19:24 3 ml STAT ONE Administration Albuterol/Ipratropium Confirm 04/27/22 19:44 Ipratropium/Albuterol Sulfate 3 Ml Ampul.Neb Administered 04/27/22 19:45 Dose 3 ml IH .STK-MED ONE Albuterol/Ipratropium 3 ml 04/27/22 23:00 04/28/22 01:23 Ipratropium/Albuterol Sulfate 3 Ml Ampul.Neb 05/27/22 22:59 Not Given Q4HRT HARLEEN Albuterol/Ipratropium 3 ml 04/28/22 07:00 04/28/22 11:00 Ipratropium/Albuterol Sulfate 3 Ml Ampul.Neb 05/28/22 06:59 3 ml QIDRT HARLEEN Administration Aspirin 325 mg 04/28/22 10:00 04/28/22 10:07 Aspirin 325 Mg Tablet.Ec PO 05/28/22 09:59 325 mg QAM HARLEEN Administration Clopidogrel Bisulfate 75 mg 04/28/22 10:00 04/28/22 10:07 Clopidogrel Bisulfate 75 Mg Tablet PO 05/28/22 09:59 75 mg DAILY HARLEEN Administration Methylprednisolone Sodium 0 mg 04/27/22 19:23 04/27/22 19:42 Succinate 125 mg/ Sterile IV 04/27/22 19:24 125 mg Water 2 ml STAT ONE Administration Methylprednisolone Sodium 0 mg 04/28/22 00:00 04/28/22 11:54 Succinate 60 mg/ Sterile Water IV 05/28/22 00:00 60 mg 2 ml Q6HT HARLEEN Administration Azithromycin 500 mg in 250 mls @ 250 mls/hr 04/27/22 22:05 04/28/22 07:40 Zithromax 500 Mg/ 250 Ml Nacl Premix IV 04/27/22 23:04 Not Given STAT STA Ceftriaxone Sodium/Dextrose 2 g in 50 mls @ 100 mls/hr 04/27/22 22:05 2 22:08 Rocephin 2 Gm-D5w 50ml Bag IV 04/27/22 22:34 100 mls/hr STAT STA 100 mls/hr Administration Ceftriaxone Sodium/Dextrose Confirm 04/27/22 22:07 Rocephin 2 Gm-D5w 50ml Bag Administered 04/27/22 22:08 Dose 2 g in 50 mls @ ud IV .STK-MED ONE Ceftriaxone Sodium/Dextrose 1 g in 50 mls @ 100 mls/hr 04/28/22 22:00 Rocephin 1 Gm-D5w 50 Ml Bag IV 05/01/22 21:59 Q24H22 HARLEEN Azithromycin 500 mg in 250 mls @ 250 mls/hr 04/28/22 10:00 04/27/22 23:35 Zithromax 500 Mg/ 250 Ml Nacl Premix IV 05/28/22 09:59 250 mls/hr Q24H10 HARLEEN Administration Azithromycin 500 mg in 250 mls @ 250 mls/hr 04/28/22 22:00 Zithromax 500 Mg/ 250 Ml Nacl Premix IV 05/28/22 21:59 Q24H22 HARLEEN Isosorbide Mononitrate 30 mg 04/28/22 10:00 04/28/22 10:07 Isosorbide Mononitrate 30 Mg Tab PO 05/28/22 09:59 30 mg BID HARLEEN Administration Labetalol HCl 300 mg 04/28/22 10:00 04/28/22 10:07 Labetalol Hcl 100 Mg Tablet PO 05/28/22 09:59 300 mg BID HARLEEN Administration Lisinopril 10 mg 04/28/22 10:00 04/28/22 10:07 Lisinopril 10 Mg Tablet PO 05/28/22 09:59 10 mg DAILY HARLEEN Administration Lisinopril 10 mg 04/28/22 22:00 Lisinopril 10 Mg Tablet PO 05/28/22 09:59 BID [facility] Metformin HCl 500 mg 04/28/22 10:00 04/28/22 10:54 Metformin Hcl 500 Mg Tablet PO 05/28/22 09:59 Not Given DAILY@0800 [facility] Methylprednisolone Sodium Succinate Confirm 04/27/22 19:39 Methylprednis Sod Succ 125 Mg/2 Ml Vial Administered 04/27/22 19:40 Dose 125 mg .ROUTE .STK-MED ONE Methylprednisolone Sodium Succinate Confirm 04/28/22 00:05 Methylprednis Sod Succ 125 Mg/2 Ml Vial Administered 04/28/22 00:06 Dose 125 mg .ROUTE .STK-MED ONE Pantoprazole Sodium 40 mg 04/28/22 10:00 04/28/22 10:07 Protonix (Pantoprazole) 40 Mg Tablet PO 05/28/22 09:59 40 mg BID HARLEEN Administration Pantoprazole Sodium 40 mg 04/29/22 10:00 Protonix (Pantoprazole) 40 Mg Tablet PO 05/28/22 09:59 DAILY [facility] Pramipexole Dihydrochloride 0.5 mg 04/28/22 22:00 Pramipexole Di-Hcl 0.5 Mg Tab PO 05/28/22 21:59 HS [facility] Simvastatin 20 mg 04/28/22 10:00 04/28/22 10:54 Simvastatin 20 Mg Tablet PO 05/28/22 09:59 Not Given DAILY [facility] Simvastatin 20 mg 04/28/22 22:00 Simvastatin 20 Mg Tablet PO 05/28/22 09:59 HS [facility] Spironolactone 25 mg 04/28/22 10:00 04/28/22 10:07 Spironolactone 25 Mg Tablet PO 05/28/22 09:59 25 mg DAILY HARLEEN Administration Sterile Water Confirm 04/27/22 19:39 Water For Injection,Sterile 10 Ml Vial Administered 04/27/22 19:40 Dose 10 ml IJ .STK-MED ONE Sterile Water Confirm 04/28/22 00:06 Water For Injection,Sterile 10 Ml Vial Administered 04/28/22 00:07 Dose 10 ml IJ .STK-MED ONE Intake & Output (Last 24 hours) 04/26/22 04/27/22 04/28/22 04/29/22 11:59 11:59 11:59 11:59 Intake Total 200 Output Total 250 Balance -50 Weight 67.7 kg Microbiology Results (Last 24 hours) 04/27/22 19:45 Blood Blood Culture Gram Stain - Pending 04/27/22 19:45 Blood Blood Culture - Pending 04/27/22 19:45 Blood Blood Culture Gram Stain - Pending 04/27/22 19:45 Blood Blood Culture - Pending Laboratory Results (Last 24 hours) 04/28/22 04/28/22 04/28/22 06:51 05:08 05:08 WBC 3.2 L RBC 3.88 L Hgb 12.9 Hct 41.1 L MCV 105.9 H MCH 33.2 H MCHC 31.4 L RDW 12.9 Plt Count 191 MPV 9.8 Sodium 137 Potassium 4.5 Chloride 102 Carbon Dioxide 27 Anion Gap 11.6 BUN 20 Creatinine 0.82 Estimated GFR > 60.0 Glucose 155 H POC Glucometer 128 H Calcium 8.8 Total Bilirubin 0.30 AST 25 ALT 19 Alkaline Phosphatase 62 Troponin I Serum Total Protein 6.3 Albumin 3.9 04/28/22 04/27/22 05:08 23:30 WBC RBC Hgb Hct MCV MCH MCHC RDW Plt Count MPV Sodium Potassium Chloride Carbon Dioxide Anion Gap BUN Creatinine Estimated GFR Glucose POC Glucometer Calcium Total Bilirubin AST ALT Alkaline Phosphatase Troponin I < 0.012 < 0.012 Serum Total Protein Albumin Orders (Last 24 hours) Category Date Time Status Up With Assistance ROUTINE Activity 04/27/22 22:27 Completed Code Status Order ROUTINE Care 04/27/22 22:27 Completed IV Care Q6H Care 04/27/22 22:27 Completed Nursing [Miscellaneous Nursing Order] ROUTINE Care 04/28/22 09:31 Completed POCT Glucose Check ACHS Care 04/28/22 00:[address] in Observation ROUTINE Care 04/27/22 22:27 Completed Patricia Garcia ROUTINE Care 04/27/22 22:27 Completed Weight,Daily 0600 Care 04/27/22 22:27 Completed Consistent Carbohydrate Diet 1800 Calorie Diet 04/28/22 Breakfast Completed Nutritional Admission Screen ONCE Diet 04/27/22 23:00 Completed Nutritional Admission Screen ONCE Diet 04/27/22 23:12 Completed Discharge Routine Discharge 04/28/22 Ordered BLOOD CULTURE Stat Lab 04/27/22 19:45 Received CBC AM.LAB Lab 04/28/22 05:08 Completed CBC W DIFF Stat Lab 04/27/22 19:45 Completed CMP AM.LAB Lab 04/28/22 05:08 Completed POCT GLUCOSE Stat Lab 04/28/22 06:51 Completed TROPONIN Q4H Lab 04/27/22 19:46 Completed TROPONIN Q4H Lab 04/27/22 23:30 Completed TROPONIN Q4H Lab 04/28/22 05:08 Completed Albuterol/Ipratropium 3ml Neb* [DUONEB 0.5-3 MG/3 ml Med 04/27/22 19:44 Discontinued Neb] 3 ml IH .STK-MED ONE Albuterol/Ipratropium 3ml Neb* [DUONEB 0.5-3 MG/3 ml Med 04/27/22 23:00 Discontinued Neb] 3 ml IH Q4HRT Albuterol/Ipratropium 3ml Neb* [DUONEB 0.5-3 MG/3 ml Med 04/28/22 07:00 Discontinued Neb] 3 ml IH QIDRT Aspirin EC 325 mg [Ecotrin 325 MG] Med 04/28/22 10:00 Discontinued 325 mg PO QAM Azithromycin 500 mg/250 ml [Zithromax 500 MG/ 250 ML Med 04/28/22 10:00 Discontinued NaCl Premix] 500 mg in 250 ml IV Q24H10 Azithromycin 500 mg/250 ml [Zithromax 500 MG/ 250 ML Med 04/28/22 22:00 Discontinued NaCl Premix] 500 mg in 250 ml IV Q24H22 Azithromycin 500 mg/250 ml [Zithromax 500 MG/ 250 ML Med 04/27/22 22:05 Discontinued NaCl Premix] 500 mg in 250 ml IV STAT Ceftriaxone 1 GM/50 ML PREMIX* [ROCEPHIN 1 Gm-D5w 50 ml Med 04/28/22 22:00 Discontinued Bag] 1 g in 50 ml IV Q24H22 Ceftriaxone 2 GM/50 ML PREMIX* [ROCEPHIN 2 Gm-D5w 50ML Med 04/27/22 22:05 Discontinued BAG] 2 g in 50 ml IV STAT Ceftriaxone 2 GM/50 ML PREMIX* [ROCEPHIN 2 Gm-D5w 50ML Med 04/27/22 22:07 Discontinued BAG] 2 g in 50 ml IV UD Clopidogrel Bisulfate [PLAVIX Tablet] Med 04/28/22 10:00 Discontinued 75 mg PO DAILY Isosorbide Mononitrate 30 mg [Imdur 30 MG] Med 04/28/22 10:00 Discontinued 30 mg PO BID Labetalol HCl 100 mg [Trandate 100 MG] Med 04/28/22 10:00 Discontinued 300 mg PO BID Lisinopril 10 mg [Zestril 10 MG] Med 04/28/22 22:00 Discontinued 10 mg PO BID Lisinopril 10 mg [Zestril 10 MG] Med 04/28/22 10:00 Discontinued 10 mg PO DAILY Metformin HCl 500 mg [Glucophage 500 MG] Med 04/28/22 10:00 Discontinued 500 mg PO DAILY@0800 Methylprednis Sod Succ 125 mg* [solu-MEDROL] Med 04/28/22 00:05 Discontinued 125 mg .ROUTE .STK-MED ONE Methylprednis Sod Succ 125 mg* [solu-MEDROL] 60 mg Med 04/28/22 00:00 Discon tinued Water For Injection,Sterile [Sterile H2O 10 ml] 2 ml IV Q6HT PANTOPRAZOLE 40 mg Tablet [Protonix 40MG Tablet] Med 04/28/22 10:00 Discontinued 40 mg PO BID PANTOPRAZOLE 40 mg Tablet [Protonix 40MG Tablet] Med 04/29/22 10:00 Discontinued 40 mg PO DAILY Pramipexole Di-HCl 0.5 mg [Mirapex 0.5 MG Tablet] Med 04/28/22 22:00 Discontinued 0.5 mg PO HS Simvastatin 20Mg [Zocor 20Mg] Med 04/28/22 10:00 Discontinued 20 mg PO DAILY Simvastatin 20Mg [Zocor 20Mg] Med 04/28/22 22:00 Discontinued 20 mg PO HS Spironolactone 25 mg [Aldactone 25 MG] Med 04/28/22 10:00 Discontinued 25 mg PO DAILY Water For Injection,Sterile [Sterile H2O 10 ml] Med 04/28/22 00:06 Discontinued 10 ml IJ .STK-MED ONE Pulse Oximetry .spot check RT 04/27/22 23:20 Completed Respiratory Therapy Assessment DAILY RT 04/27/22 19:49 Completed Patient Care Notes (Last 24 hours) 04/28/22 12:11 [employer] Note by Kylie Figueredo Refused accu check states he is not a diabetic Initialized on 04/28/22 12:11 - END OF NOTE Code(s): J44.1 - CHRONIC OBSTRUCTIVE PULMONARY DISEASE W (ACUTE) EXACERBATION Hospital Summary - Hospital Course Hospital Course: Vital Signs Temp 98.2 F 04/28/22 12:00 Pulse 77 04/28/22 12:00 Resp 17 04/28/22 12:00 BP 124/60 04/28/22 12:00 Pulse Ox 97 04/28/22 12:00 Intake & Output 04/27/22 04/28/22 04/28/22 23:59 11:59 23:59 Intake Total 200 Output Total 250 Balance -50 Weight 67.7 kg 67.7 kg Intake: Intake, Oral Amount 200 Output: Output, Urine Amount 250 Last Vital Signs Temp 98.2 F 04/28/22 12:00 Pulse 77 04/28/22 12:00 Resp 17 04/28/22 12:00 BP 124/60 04/28/22 12:00 Pulse Ox 97 04/28/22 12:00 Allergies amiodarone [From Pacerone] Allergy (Severe, Verified 04/27/22 19:28) Intake & Output 04/28/22 04/29/22 11:59 11:59 Intake Total 200 Output Total 250 Balance -50 Weight 67.7 kg Orders 04/28/22 Discharge Routine Lab Tests 0904/28/22 04/28/22 23:30 05:08 05:08 WBC 3.2 L RBC 3.88 L Hgb 12.9 Hct 41.1 L MCV 105.9 H MCH 33.2 H MCHC 31.4 L RDW 12.9 Plt Count 191 MPV 9.8 Sodium Potassium Chloride Carbon Dioxide Anion Gap BUN Creatinine Estimated GFR Glucose POC Glucometer Calcium Total Bilirubin AST ALT Alkaline Phosphatase Troponin I < 0.012 < 0.012 Serum Total Protein Albumin 04/28/22 04/28/22 05:08 06:51 WBC RBC Hgb Hct MCV MCH MCHC RDW Plt Count MPV Sodium 137 Potassium 4.5 Chloride 102 Carbon Dioxide 27 Anion Gap 11.6 BUN 20 Creatinine 0.82 Estimated GFR > 60.0 Glucose 155 H POC Glucometer 128 H Calcium 8.8 Total Bilirubin 0.30 AST 25 ALT 19 Alkaline Phosphatase 62 Troponin I Serum Total Protein 6.3 Albumin 3.9 - Vitals & Intake/Output Vital Signs: Vital Signs Temperature 98.2 F 04/28/22 12:00 Pulse Rate 77 04/28/22 12:00 Respiratory Rate 17 04/28/22 12:00 Blood Pressure 124/60 04/28/22 12:00 O2 Sat by Pulse Oximetry 97 04/28/22 12:00 Intake & Output: Intake & Output 04/26/22 04/27/22 04/28/22 04/29/22 11:59 11:59 11:59 11:59 Intake Total 200 Output Total 250 Balance -50 Weight 67.7 kg - Lab Result Diagrams: 04/28/22 05:08 04/28/22 05:08 Lab Results-Last 24 Hrs: Lab Results-Last 24 Hours 04/27/22 04/28/22 04/28/22 Range/Units 23:30 05:08 05:08 WBC 3.2 L (4.0-10.5) x10^3/uL RBC 3.88 L (4.1-5.6) x10^6/uL Hgb 12.9 (12.5-18.0) g/dL Hct 41.1 L (42-50) % MCV 105.9 H (78-100) fL MCH 33.2 H (26-32) pg MCHC 31.4 L (32-36) g/dL RDW 12.9 (11.5-14.0) % Plt Count 191 (150-450) x10^3/uL MPV 9.8 (7.5-11.0) fL Sodium (137-145) mmol/L Potassium (3.5-5.1) mmol/L Chloride (98-107) mmol/L Carbon Dioxide (22-30) mmol/L Anion Gap (5-15) MEQ/L BUN (9-20) mg/dL Creatinine (0.66-1.25) mg/dL Estimated GFR ML/MIN Glucose (74-106) mg/dL POC Glucometer (74 to 106) mg/dL Calcium (8.4-10.2) mg/dL Total Bilirubin (0.2-1.3) mg/dL AST (17-59) U/L ALT (0-50) U/L Alkaline Phosphatase (38-126) U/L Troponin I < 0.012 < 0.012 (0.000-0.034) ng/mL Serum Total Protein (6.3-8.2) g/dL Albumin (3.5-5.0) g/dL 04/28/22 04/28/22 Range/Units 05:08 06:51 WBC (4.0-10.5) x10^3/uL RBC (4.1-5.6) x10^6/uL Hgb (12.5-18.0) g/dL Hct (42-50) % MCV (78-100) fL MCH (26-32) pg MCHC (32-36) g/dL RDW (11.5-14.0) % Plt Count (150-450) x10^3/uL MPV (7.5-11.0) fL Sodium 137 (137-145) mmol/L Potassium 4.5 (3.5-5.1) mmol/L Chloride 102 (98-107) mmol/L Carbon Dioxide 27 (22-30) mmol/L Anion Gap 11.6 (5-15) MEQ/L BUN 20 (9-20) mg/dL Creatinine 0.82 (0.66-1.25) mg/dL Estimated GFR > 60.0 ML/MIN Glucose 155 H (74-106) mg/dL POC Glucometer 128 H (74 to 106) mg/dL Calcium 8.8 (8.4-10.2) mg/dL Total Bilirubin 0.30 (0.2-1.3) mg/dL AST 25 (17-59) U/L ALT 19 (0-50) U/L Alkaline Phosphatase 62 (38-126) U/L Troponin I (0.000-0.034) ng/mL Serum Total Protein 6.3 (6.3-8.2) g/dL Albumin 3.9 (3.5-5.0) g/dL - Radiology Exams Ordered Rad Exams-Entire Visit: Radiology Procedures Category Date Time Status CHEST 1 VIEW (PORTABLE) Stat Exams 04/27/22 19:23 Completed - Procedures and Test Procedures and Tests throughout Hospitalization: Therapy Orders & Screens 04/27/22 19:49 Respiratory Therapy Assessment DAILY Comment: - Discharge Discharge Date: 04/28/22 Disposition: Home, Self-Care Condition: Stable Prescriptions: Continue Spironolactone 25 mg [Aldactone 25 MG] 25 mg PO DAILY Labetalol HCl [Trandate] 300 mg PO BID Isosorbide Mononitrate 30 mg [Imdur 30 MG] 30 mg PO BID Lisinopril 10 mg [Zestril 10 MG] 10 mg PO BID Clopidogrel Bisulfate [PLAVIX Tablet] 75 mg PO DAILY Atorvastatin Calcium [Lipitor 20MG Tablet] 20 mg PO HS Aspirin 325 mg PO DAILY Omeprazole 20 MG [Prilosec 20 mg] 20 mg PO DAILY Albuterol 2.5 mg/3 ml Neb [Proventil 2.5 mg/3 ml Neb] 2.5 inh IH Q4HPRN PRN PRN Reason: COPD Pramipexole Di-HCl 0.5 mg [Mirapex 0.5 MG Tablet] 0.5 mg PO HS Instructions: Chronic Obstructive Pulmonary Disease (COPD) (DC) Follow up with: BLANCA LI MD [Primary Care Provider] - Call for Appointment (FOLLOW-UP IN 1 WEEK, CALL FOR APPOINTMENT ) Forms: Discharge Instructions
[2022-04-28] MEDS ORDERED: ROCEPHIN 1 Gm-D5w 50 ml Bag** 1 G/50 ML IVPB IV SCH (22:00)
[2022-04-28] MEDS ORDERED: Mirapex 0.5 MG Tablet PO SCH (22:00)
[2022-04-29] MEDS ORDERED: Protonix 40MG Tablet PO SCH (10:00)
== END 2022-04-28 12:58 | disposition home or self-care (01) ==
LOC: ED 19:09 → MED SURG 22:26
PROVIDERS: ADMIT General Practice; ATTEND General Practice
DX: J44.1 Chronic obstructive pulmonary disease with (acute) exacerbation (principal); I10 Essential (primary) hypertension; E11.9 Type 2 diabetes mellitus without complications; I25.2 Old myocardial infarction; Z72.0 Tobacco use; Z79.899 Other long term (current) drug therapy; Z20.828 Contact with and (suspected) exposure to other viral communicable diseases
CPT/HCPCS: 0241U; 36000; 36415; 71045; 80053; 82947; 83880; 84484; 85025; 85027; 87040; 93005; 93041; 93268; 94640; 94760; 96374; 99285; G0378; J0456; J0696; J2930; A9270-GY

== ENCOUNTER 2024-09-24 20:34 | Emergency (ER) | payer MEDICARE, OTHER ==
--- NOTE | 2024-09-24 21:52 | ERPHSYRPT ---
- History of Present Illness Time Seen by Provider: 09/24/24 21:51 Source: patient, family Exam Limitations: no limitations Physician History: This is an 83-year-old white male patient who was concerned because he felt his blood pressure was "creeping up" throughout the day. He also had some chest tightness. He states that he has noticed increasing shortness of breath over the last couple days. Because his blood pressure was up, he took 1 sublingual nitroglycerin. This relieved his chest tightness and brought his blood pressure down. On arrival to the emergency department his initial systolic blood pressure was 127. Patient currently denies chest pain. Patient has a history of coronary artery stents and is on Plavix. He has a history of hyperlipidemia, hypertension, gastroesophageal reflux disease, COPD and asthma as well as diabetes. Timing/Duration: today Severity: mild (Filed over the last couple of days) Associated Symptoms: shortness of breath, chest pain Allergies/Adverse Reactions: amiodarone [From Pacerone] Allergy (Severe, Verified 04/27/22 19:28) Home Medications: Aspirin 325 mg PO DAILY 06/23/16 [History] Atorvastatin Calcium [Lipitor 20MG Tablet] 20 mg PO HS 06/23/16 [History] Clopidogrel Bisulfate [PLAVIX Tablet] 75 mg PO DAILY 06/23/16 [History] Isosorbide Mononitrate 30 mg [Imdur 30 MG] 60 mg PO DAILY 06/23/16 [History] Labetalol HCl [Trandate] 300 mg PO BID 06/23/16 [History] Lisinopril 10 mg [Zestril 10 MG] 10 mg PO BID 06/23/16 [History] Omeprazole 20 MG [Prilosec 20 mg] 20 mg PO DAILY 06/23/16 [History] Spironolactone 25 mg [Aldactone 25 MG] 25 mg PO DAILY 06/23/16 [History] Albuterol 2.5 mg/3 ml Neb [Proventil 2.5 mg/3 ml Neb] 2.5 inh IH Q4HPRN PRN 04/27/22 [History] Pramipexole Di-HCl 0.5 mg [Mirapex 0.5 MG Tablet] 0.5 mg PO HS 04/28/22 [History] Hx Tetanus, Diphtheria Vaccination/Date Given: No Hx Influenza Vaccination/Date Given: Yes Hx Pneumococcal Vaccination/Date Given: Yes Travel Risk - International Travel Have you traveled outside of the country in past 3 weeks: No - Emerging Infectious Disease Are you exhibiting symptoms associated with any current EIDs: No Symptoms: Shortness of Breath - Review of Systems Constitutional: No Symptoms Eyes: No Symptoms Ears, Nose, & Throat: No Symptoms Respiratory: Dyspnea (Mild over the last couple of days) Cardiac: Chest Pain (Described as a generalized tightness that is mild) Abdominal/Gastrointestinal: No Symptoms Genitourinary Symptoms: No Symptoms Musculoskeletal: No Symptoms Skin: No Symptoms Neurological: No Symptoms Psychological: No Symptoms Endocrine: No Symptoms Hematologic/Lymphatic: No Symptoms Immunological/Allergic: No Symptoms All Other Systems: Reviewed and Negative - Past Medical History Pertinent Past Medical History: Yes Cardiac History: Hypertension, Myocardial Infarction (PR) Respiratory History: COPD Endocrine Medical History: Diabetes Type II - Past Surgical History Past Surgical History: Yes Cardiac: Cardiac Catheterization, Cardiac Stent Musculoskeletal: Orthopedic Surgery Other Surgical History: rt eye removed - Social History Smoking Status: Current every day smoker How long have you smoked: years Exposure to second hand smoke: No Drug Use: none Patient Lives Alone: No - Nursing Vital Signs Nursing Vital Signs: Initial Vital Signs Temperature 97.6 F 09/24/24 21:48 Pulse Rate 72 09/24/24 21:48 Respiratory Rate 18 09/24/24 21:48 Blood Pressure 134/84 09/24/24 21:48 O2 Sat by Pulse Oximetry 97 09/24/24 21:48 Pain Scale Pain Intensity 0 - Physical Exam General Appearance: no apparent distress, alert, thin Eye Exam: PERRL/EOMI, eyes nml inspection Ears, Nose, Throat Exam: normal ENT inspection, moist mucous membranes Neck Exam: normal inspection, non-tender, supple, full range of motion Respiratory Exam: normal breath sounds, lungs clear, airway intact, No chest tenderness, No respiratory distress Cardiovascular Exam: regular rate/rhythm, normal heart sounds, normal peripheral pulses Gastrointestinal/Abdomen Exam: soft, normal bowel sounds, No tenderness Rectal Exam: not done Back Exam: normal inspection, normal range of motion, No CVA tenderness, No vertebral tenderness Extremity Exam: normal inspection, normal range of motion, pelvis stable Neurologic Exam: alert, oriented x 3, cooperative, racecar driver II-XII nml as tested, normal mood/affect, nml cerebellar function, nml station & gait, sensation nml Skin Exam: normal color, warm, dry Lymphatic Exam: No adenopathy SpO2 Interpretation: normal O2 Delivery: Room Air - Course Nursing assessment & vital signs reviewed: Yes EKG Interpreted by Me: RATE (71), Sinus Rhythm, Left [place] Deviation (Borderline), NORMAL INTERVALS, NORMAL QRS, NORMAL ST-T, Other (No acute ischemia. QTc 413) Ordered Tests: Active Orders 24 hr Category Date Time Status Stem Cutter STAT Care 09/24/24 22:24 Active EKG-ER Only STAT Care 09/24/24 22:23 Active IV Insertion STAT Care 09/24/24 22:23 Active Pulse Oximetry (ED) STAT Care 09/24/24 22:23 Active CHEST 1 VIEW (PORTABLE) Stat Exams 09/24/24 22:24 Taken CBC W DIFF Stat Lab 09/24/24 22:10 Completed CMP Stat Lab 09/24/24 22:10 Completed MAGNESIUM Stat Lab 09/24/24 22:10 Completed NT PRO BNPII Stat Lab 09/24/24 22:10 Completed TROPONIN Q4H Lab 09/24/24 22:10 Completed TROPONIN Q4H Lab 09/25/24 02:30 Ordered TROPONIN Q4H Lab 09/25/24 06:30 Ordered Medication Summary Discontinued Medications Generic Name Dose Route Start Last Admin Trade Name Freq PRN Reason Stop Dose Admin Aspirin 324 mg 09/24/24 22:23 09/24/24 22:30 Aspirin 81 Mg Tab.Chew PO 09/24/24 22:24 324 mg STAT ONE Administration Aspirin Confirm 09/24/24 22:29 Aspirin 81 Mg Tab.Chew Administered 09/24/24 22:30 Dose 324 mg .ROUTE .STK-MED ONE Lab/Rad Data: Laboratory Result Diagrams 09/24/24 22:10 09/24/24 22:10 Laboratory Results 09/24/24 09/24/24 09/24/24 Range/Units 22:35 22:10 22:10 WBC (4.23-9.07) x10^3/uL RBC (4.63-6.08) x10^6/uL Hgb (13.7-17.5) g/dL Hct (40.1-51.0) % MCV (79.0-92.2) fL MCH (25.7-32.2) pg MCHC (32.3-36.5) g/dL RDW (11.6-14.4) % Plt Count (163-337) x10^3/uL MPV (9.4-12.4) fL Gran % (34.0-67.9) % Immature Gran % (Auto) (0.001-0.429) % Nucleat RBC Rel Count (0.00-0.2) % Eos # (Auto) (0.04-0.54) x10^3/uL Immature Gran # (Auto) (0.001-0.031) x10^3u/L Absolute Lymphs (auto) (1.32-3.57) x10^3/uL Absolute Monos (auto) (0.30-0.82) x10^3/uL Absolute Nucleated RBC (0.00-0.012) x10^3u/L Lymphocytes % (21.8-53.1) % Monocytes % (5.3-12.2) % Eosinophils % (0.8-7.0) % Basophils % (0.2-1.2) % Absolute Granulocytes (1.78-5.38) x10^3/uL Basophils # (0.01-0.08) x10^3/uL Sodium 136 (135-145) mmol/L Potassium 4.2 (3.5-5.1) mmol/L Chloride 105 (98-107) mmol/L Carbon Dioxide 28 (22-30) mmol/L Anion Gap 8.1 (5-15) MEQ/L BUN 16 (9-20) mg/dL Creatinine 0.94 (0.66-1.25) mg/dL Estimated GFR 81.4 ML/MIN Glucose 97 (74-106) mg/dL Calcium 8.9 (8.4-10.2) mg/dL Magnesium 1.9 (1.6-2.3) mg/dL Total Bilirubin 0.50 (0.2-1.3) mg/dL AST 29 (17-59) U/L ALT 20 (0-50) U/L Alkaline Phosphatase 46 (38-126) U/L Troponin I < 0.012 (0.000-0.033) ng/mL NT-Pro-B Natriuret Pep 190 (<300) pg/mL Serum Total Protein 5.6 L (6.3-8.2) g/dL Albumin 3.5 (3.5-5.0) g/dL Influenza Type A Ag NEGATIVE (NEGATIVE) Influenza Type B Ag NEGATIVE (NEGATIVE) RSV (PCR) NEGATIVE (NEGATIVE) SARS-CoV-2 (PCR) NEGATIVE (NEGATIVE) 09/24/24 Range/Units 22:10 WBC 7.3 (4.23-9.07) x10^3/uL RBC 3.67 L (4.63-6.08) x10^6/uL Hgb 11.9 L (13.7-17.5) g/dL Hct 37.6 L (40.1-51.0) % MCV 102.5 H (79.0-92.2) fL MCH 32.4 H (25.7-32.2) pg MCHC 31.6 L (32.3-36.5) g/dL RDW 13.0 (11.6-14.4) % Plt Count 226 (163-337) x10^3/uL MPV 9.4 (9.4-12.4) fL Gran % 69.0 H (34.0-67.9) % Immature Gran % (Auto) 0.4 (0.001-0.429) % Nucleat RBC Rel Count 0.0 (0.00-0.2) % Eos # (Auto) 0.09 (0.04-0.54) x10^3/uL Immature Gran # (Auto) 0.03 (0.001-0.031) x10^3u/L Absolute Lymphs (auto) 1.35 (1.32-3.57) x10^3/uL Absolute Monos (auto) 0.78 (0.30-0.82) x10^3/uL Absolute Nucleated RBC 0.00 (0.00-0.012) x10^3u/L Lymphocytes % 18.4 L (21.8-53.1) % Monocytes % 10.6 (5.3-12.2) % Eosinophils % 1.2 (0.8-7.0) % Basophils % 0.4 (0.2-1.2) % Absolute Granulocytes 5.06 (1.78-5.38) x10^3/uL Basophils # 0.03 (0.01-0.08) x10^3/uL Sodium (135-145) mmol/L Potassium (3.5-5.1) mmol/L Chloride (98-107) mmol/L Carbon Dioxide (22-30) mmol/L Anion Gap (5-15) MEQ/L BUN (9-20) mg/dL Creatinine (0.66-1.25) mg/dL Estimated GFR ML/MIN Glucose (74-106) mg/dL Calcium (8.4-10.2) mg/dL Magnesium (1.6-2.3) mg/dL Total Bilirubin (0.2-1.3) mg/dL AST (17-59) U/L ALT (0-50) U/L Alkaline Phosphatase (38-126) U/L Troponin I (0.000-0.033) ng/mL NT-Pro-B Natriuret Pep (<300) pg/mL Serum Total Protein (6.3-8.2) g/dL Albumin (3.5-5.0) g/dL Influenza Type A Ag (NEGATIVE) Influenza Type B Ag (NEGATIVE) RSV (PCR) (NEGATIVE) SARS-CoV-2 (PCR) (NEGATIVE) - Progress Progress: improved, re-examined Progress Note: 09/24/24 23:34 My medical decision making and the assignment of moderate complexity to this patient's medical issue today is based on review of the patient's past medical history, review the patient's medication list, reviewed patient drug allergy list, history present illness and physical findings on examination. The workup in this patient includes twelve-lead EKG, intravenous line patient, CBC, CMP, troponin level, twelve-lead EKG, BNP, magnesium level, viral swabs, chest x-ray Differential diagnosis includes was not limited to upper respiratory infection, pneumonia, viral illness, electrolyte abnormalities, arrhythmia, myocardial infarction, CHF, COPD exacerbation I interpreted the patient's preliminary chest x-ray report. There are chronic changes consistent with emphysema but no acute cardiopulmonary process I interpreted the patient's laboratory data results. There is no evidence of any acute, emergent medical issue based on the laboratory data results. Counseled pt/family regarding: lab results, need for follow-up, rad results Medical Desision Making - Independent Historian Additional History obtained from: Spouse - Diagnostic Testing Diagnostic test were ordered, analyzed, and reviewed by me: Yes Radiological Interpretation: Interpreted by me, Teleradiologist Report - Risk of complications Low Risk: Low risk of morbidity from additional dx testing or treatment - Departure Departure Disposition: Home Clinical Impression: Chest tightness, Shortness of breath Condition: Stable Critical Care Time: No Referrals: BLANCA LI MD [Primary Care Provider] - Follow up/PCP as directed Additional Instructions: Take all your medications as prescribed. Call your pet ambassador, pleat taper and primary care provider tomorrow, 09/25/2024, to make arrangements for follow-up appointment to be seen in the next 3 to 5 days.
[2024-09-24 21:58] VITALS: TEMP 97.6
[2024-09-24] MEDS ORDERED: BABY ASPIRIN 81 MG CHEW ONE (22:29)
[2024-09-24 22:30] LABS: Absolute Neutrophil Ct (ANC) 5.06 x10^3/uL (1.78-5.38); BASOPHIL % 0.4 % (0.2-1.2); Basophil (Absolute #) 0.03 x10^3/uL (0.01-0.08); Eosinophil % 1.2 % (0.8-7.0); Eosinophil (Absolute #) 0.09 x10^3/uL (0.04-0.54); Hematocrit 37.6 % (40.1-51.0); Hemoglobin 11.9 g/dL (13.7-17.5); IMMATURE GRAN # 0.03 x10^3u/L (0.001-0.031); IMMATURE GRAN % 0.4 % (0.001-0.429); Lymphocyte (Absolute #) 1.35 x10^3/uL (1.32-3.57); Lymphocytes % 18.4 % (21.8-53.1); Mean Cell Volume 102.5 fL (79.0-92.2); Mean Corpuscular Hemoglobin 32.4 pg (25.7-32.2); Mean Corpuscular Hgb Concent. 31.6 g/dL (32.3-36.5); Mean Platelet Volume 9.4 fL (9.4-12.4); Monocyte (Absolute #) 0.78 x10^3/uL (0.30-0.82); Monocytes % 10.6 % (5.3-12.2); Platelet Count 226 x10^3/uL (163-337); Red Blood Count 3.67 x10^6/uL (4.63-6.08); White Blood Count 7.3 x10^3/uL (4.23-9.07)
[2024-09-24] MEDS: BABY ASPIRIN 81 MG CHEW PO ONE (22:30)
[2024-09-24 22:45] LABS: ALBUMIN 3.5 g/dL (3.5-5.0); ANION GAP 8.1 MEQ/L (5-15); BILIRUBIN,TOTAL 0.5 mg/dL (0.2-1.3); Calcium 8.9 mg/dL (8.4-10.2); Creatinine 1 0.94 mg/dL (0.66-1.25); EST GLOMERULAR FILTRATION RATE 81.4 ML/MIN; MAGNESIUM 1.9 mg/dL (1.6-2.3); Potassium 4.2 mmol/L (3.5-5.1); Total Protein 5.6 g/dL (6.3-8.2)
[2024-09-24 23:13] VITALS: BP 148/99; PULSE 69; RESP 15; O2SAT 96
[2024-09-24 23:13] LABS: INFLUENZA A NEGATIVE (NEGATIVE); INFLUENZA B NEGATIVE (NEGATIVE); RESPIRATORY SYNCTIAL VIRUS NEGATIVE (NEGATIVE); SARS-CoV-2 Xpert Express NEGATIVE (NEGATIVE)
--- NOTE | 2024-09-25 08:47 | XRAY ---
Indication: Cough. COPD. Comparison: April 27, 2022 Portable chest again demonstrates COPD with new minimal left base of some atelectasis/scarring. No focal infiltrate, consolidation, or large effusion. Heart not enlarged with interval enlarging large hiatal hernia with partial intrathoracic stomach. Bony thorax intact again with osteopenia and degenerative changes. Impression: Nonacute chest with chronic features.
== END 2024-09-24 23:45 | disposition home or self-care (01) ==
LOC: ED 20:34
DX: R07.9 Chest pain, unspecified (principal); R06.02 Shortness of breath; I10 Essential (primary) hypertension; E78.5 Hyperlipidemia, unspecified; E11.9 Type 2 diabetes mellitus without complications; Z79.02 Long term (current) use of antithrombotics/antiplatelets; Z79.899 Other long term (current) drug therapy; Z72.0 Tobacco use
CPT/HCPCS: 0241U; 36415; 71045; 80053; 83735; 83880; 84484; 85025; 93005; 93041; 94760; 99285; 99284; A9270-GY